=== PATIENT | female | born 1975 | race Caucasian/White ===

== ENCOUNTER → 2019-12-18 11:59 | Outpatient (CLI) | payer BC, SELFPAY ==
--- NOTE | 2019-12-18 12:01 | BI_ITS ---
MAMMOGRAPHY - BILATERAL SCREENING REASON FOR EXAM: Female, 44 years old. Routine annual screening examination. PERTINENT HISTORY: Non-contributory. TECHNIQUE: Digital bilateral breast eyad (3D mammographic acquisition) in the CC and MLO projections. 2-D mediolateral oblique (MLO) and craniocaudad (CC) views of both breasts were obtained. CAD: Full Field Digital Mammography with Computer Added Detection was performed. COMPARISON: Comparison is made with prior outside examination dated 05/19/2016. FINDINGS: Breast Composition: The breasts are extremely dense, which lowers the sensitivity of mammography. There are no dominant masses or suspicious calcifications. Stable benign-appearing bilateral axillary lymph nodes. No other significant abnormalities are identified. There has been no significant change since the prior study. BI/SCREEN MAMM (CAD) W/EYAD BILAT IMPRESSION: Stable bilateral screening mammogram. Yearly follow-up mammogram recommended. (A) ASSESSMENT CATEGORY: BIRADS Category 2: Benign. A letter regarding these results will be sent to the patient by the facility within 30 days. Approximately 10% of breast cancers are not detected by mammography. A normal mammogram should not delay biopsy of a clinically suspicious abnormality. [id number] Electronically Signed: Jaycob Huang, at 14:42 EST , Service support ,
== END ==
DX: Z12.31 Encounter for screening mammogram for malignant neoplasm of breast (principal)
CPT/HCPCS: 77063; 77067

== ENCOUNTER 2023-12-21 09:44 | Day surgery (SDC) | payer BC, SELFPAY ==
[2023-12-21] VITALS (8 sets, daily range): BP systolic 107–149; BP diastolic 61–92; PULSE 63–80; RESP 16–18; TEMP 36.1–36.3; O2SAT 94–100; BMI 24.8
--- NOTE | 2023-12-21 09:58 | PRE.ANES_ITS ---
ASA Classification* ASA Classification ASA Classification: 2 (SEE WRITTEN PRE ANESTHESIA RECORD FOR FULL ASSESSMENT) Assessment & Plan Anesthesia* Anesthesia Assessment Anesthesia Assessment: Discussed sedation and/or anesthesia options, risks, benefits, and alternatives with patient/parents/legal guardian/POA. Questions invited. The patient/parents/legal guardian/POA seems to understand and agrees to proceed with anesthesia plan. Reviewed the physical assessment, medical history, allergy history and patient home medications list prior to surgery/procedure/anesthetic and documented any changes. Performed airway and anesthesia risk assessments. 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 When Was Last Pacemaker Check QUESTION #4 FULL TEXT: You/Your Family Experience fever (hyperthermia) with Anesthesia Last Oral Intake Last Oral intake: Last Oral Intake NPO since Meds taken in AM with sips of water? Meds patient instructed to take am of surgery PONV PONV - sap business objects consultant: PONV - sap business objects consultant Female Yes 12/19/23 12:46 HX of Motion Sickness Yes 12/19/23 12:46 HX of N/V After Surgery No 12/19/23 12:46 Non-Smoker Yes 12/19/23 12:46 Duration of Surgery greater No 12/19/23 12:46 than 60 minutes Number of Risk Factors 3 12/19/23 12:46 PONV Score Moderate Risk 12/19/23 12:46 Height & Weight Height & Weight: Anesthesia: Height & Weight Height 5 ft 6 in 11/21/23 10:19 Respiratory Assessment Respiratory Assessment - sap business objects consultant: Respiratory Tract Infection Hx - sap business objects consultant Hx Respiratory Tract Infection No 12/19/23 12:46 STOP Sleep Apnea STOP Sleep Apnea - sap business objects consultant: STOP Sleep Apnea - sap business objects consultant Hx Hypertension Yes: CONTROLLED WITH MED 12/19/23 12:46 Hx Sleep Apnea No 12/19/23 12:46 CPAP BIPAP Do you snore loudly (louder No 12/19/23 12:46 than talking or can be heard Do you often feel tired/ No 12/19/23 12:46 fatigued/ sleepy during daytime? Has anyone observed you stop No 12/19/23 12:46 breathing during sleep? STOP Results Negative 12/19/23 12:46 QUESTION #5 FULL TEXT : Do you snore loudly (louder than talking or can be heard through closed doors)? 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 Specify any problems Hx of Preganancy in last 3 N/A 12/19/23 12:46 Months Nurse Filling Out Transfusion NBUCHER 12/19/23 12:46 & Questions: Date: 12/19/23 12/19/23 12:46 Time: 12:47 12/19/23 12:46 Patient unable to answer at this time (ie. confused, unrespo /Reproduction History /Reproductive History - sap business objects consultant: /Reproductive Hx- sap business objects consultant Hx Now No 12/19/23 12:46 Gestational Age (in weeks): EDC: Hx Hx Para Hx Section SAB No 12/19/23 12:46 PFSH Medical History History of kidney stones High cholesterol Non-smoker Hyperlipidemia HTN (hypertension) Home Medications ?Medication ?Instructions ?Recorded ?Last Taken ?Type ibuprofen 200 mg tablet 200 mg PO Q6H PRN pain 11/21/23 Unknown History lisinopril 20 mg tablet 20 mg PO QDAY 11/21/23 Unknown History Allergy/AdvReac Type Severity Reaction Status Date / Time No Known Allergies Allergy Verified 12/19/23 12:45 Surgical History History of wisdom tooth extraction History of History of loop electrical excision procedure (LEEP) Hx of colonoscopy Social History household members: other details: current occupational status: employed current occupation: [employer] Smoking Status: Never smoker details: Little to no alcohol substance use type: does not use caffeine: Yes Type: coffee Number of servings: 1 Review of Systems (Anesthesia) ROS Narrative System reviewed and no additional complaints, except as documented.
--- NOTE | 2023-12-21 10:18 | PCM.HP.STD ---
[facility] - General General Date of Admission: 12/21/23 Date of Service: 12/21/23 Chief Complaint: Screening colonoscopy HPI Narrative DIEUDONNE WARD, is a 48 F who presents today for screening colonoscopy. She has a past medical history of mild hypertension. She is not have abdominal pain. Is not any cramping. She not any chest pain shortness of breath. Overall she is in very good health. [facility] Medical History History of kidney stones High cholesterol Non-smoker Hyperlipidemia HTN (hypertension) Home Medications ?Medication ?Instructions ?Recorded ?Last Taken ?Type ibuprofen 200 mg tablet 200 mg PO Q6H PRN pain 11/21/23 Unknown History lisinopril 20 mg tablet 20 mg PO QDAY 11/21/23 12/21/23 History Allergy/AdvReac Type Severity Reaction Status Date / Time No Known Allergies Allergy Verified 12/21/23 10:04 Surgical History History of wisdom tooth extraction History of History of loop electrical excision procedure (LEEP) Hx of colonoscopy Social History household members: other details: current occupational status: employed current occupation: [employer] Smoking Status: Never smoker details: Little to no alcohol substance use type: does not use caffeine: Yes Type: coffee Number of servings: 1 ROS Review of Systems ROS Unobtainable: other Constitutional Constitutional: Denies fatigue, fever(s), poor appetite, weight gain or weight loss ENT HEENT: Denies mouth lesions Cardiovascular Cardiovascular: Denies abdominal bloating, abdominal edema or abdominal pain Respiratory/Chest Respiratory/Chest: Denies change in mental status, change in phlegm color, chest congestion or chest tightness Gastrointestinal Gastrointestinal: Denies belching, bloating, change in bowel habits, change in stool character, chewing difficulty, coffee ground emesis, constipation, cramping, diarrhea, dyspepsia, dysphagia, early satiety, excessive flatus, fecal incontinence, heartburn, hematemesis, hematochezia, hemorrhoids, loose stools, melena, nausea, odynophagia, rectal bleeding, tenesmus, vomiting or weight changes Genitourinary Genitourinary: Denies abdominal discomfort, burning urination or itching Musculoskeletal Musculoskeletal: Reports as per HPI; Denies muscle weakness or myalgias Integumentary Integumentary: Denies jaundice Neurologic Neurologic: Denies lack of coordination or weakness Psychiatric Psychiatric: Denies confusion, depression, memory loss, mood swings, paranoia or suicidal ideation Endocrine Endocrinology: Denies systems reviewed and no addt'l complaints, except as documented Hematologic/Lymphatic Hematologic/Lymphatic: Denies anemia, easy bleeding, easy bruising or lymphadenopathy Allergic/Immunologic Allergic/Immunologic: Denies systems reviewed and no addt'l complaints, except as documented Vital Signs Vital Signs Vital Signs: 12/21/23 10:04 12/21/23 10:04 Temperature 97.4 F L Temperature Source Temporal Pulse Rate 63 Respiratory Rate 16 Respiratory Pattern Normal Blood Pressure 149/92 H Blood Pressure Mean 111 Blood Pressure Source Monitor Blood Pressure Position Semi-Fowlers Blood Pressure Location Right Arm Pulse Ox 100 Oxygen Delivery Method Room Air Weight Weight: 154 lb Body Mass Index (BMI) 24.8 Physical Exam Const alert General Appearance: cooperative Orientation / Consciousness: oriented to person HEENT hearing grossly normal bilaterally Head and Scalp: normal to inspection Face and Sinus: face symmetric Nose: external nose normal Mouth: oral and palatal mucosa normal Eyes conjunctivae normal General Eye: normal appearance of both eyes Neck full ROM General: normal visual inspection Lymph Lymphatic: no lymphadenopathy noted Chest inspection of chest normal and palpation of chest normal Chest: symmetrical chest wall rise Resp normal respiratory effort Effort and Inspection: able to speak in complete sentences Cardio regular rate GI non-distended Percussion: normal to percussion Rectal Exam: deferred Neuro Speech: speech normal Gait (Neuro): normal gait Assessment & Plan Assessment/Plan (1) Encounter for screening for malignant neoplasm of colon: PLAN: She was explained alternatives, risk, benefits include not withstanding bleeding, infection, sepsis, perforation, need for discharge and . She will have an ASA of 3.
[2023-12-21 10:34] LABS: Internal QC Validated? YES +Cl - CLEAR BKGD; Pregnancy, Urine Negative Negative
--- NOTE | 2023-12-21 11:00 | COLBX_PTH ---
PATIENT: DIEUDONNE WARD LOC: EN U#:[id number] AGE/SX: 48/F ROOM: RE12/21/[address]: Dr. Junior Jain DO : 1975 BED: DIS: 12/21/2023 SPEC #: [id number] RECD: 12/21/23 14:53 STATUS: BAYRON REAshley #: [id number] BURAK: 12/21/23 11:[address]: Junior Jain DEPT: SURGICAL PATHOLOGY RECD BY: Kristen Bennett ENTERED: 12/22/23 07:37 SP TYPE: COLON BX OTHR DR: HEATHER De La Vega Tissues: COLON BIOPSY Procedures: Surgery Specimen Level IV HEADER OPERATION: Colonoscopy with biopsy PRE-OP DIAGNOSIS: Encounter for screening for malignant neoplasm of colon TISSUE SUBMITTED: Splenic flexure polyp biopsy MICROSCOPIC DIAGNOSIS Splenic flexure polyp, biopsy: Fragments of tubular adenoma. PHUONG/ 12/23/2023 MICROSCOPIC DESCRIPTION Slides are reviewed. GROSS DESCRIPTION Received in fixative is one container labeled with the patient's name and designated Splenic flexure polyp biopsy. The specimen consists of multiple irregular fragments of light preston soft tissue that in aggregate measure 0.5 x 0.5 x 0.1 cm. The specimen is totally submitted in one cassette. 12/22/2023 TC:1 CPT:19665
--- NOTE | 2023-12-21 12:02 | OP.COLON_ITS ---
Patient Name: Karl Hawley Procedure Date: 12/21/2023 11:24 AM Date of : 1975 Age: 48 Procedure: Colonoscopy Indications: Screening for colorectal malignant neoplasm Providers: Junior Jain DO Referring MD: Paolo De La Vega Medicines: Monitored Anesthesia Care Patient Profile: This is a 48 year old female. Refer to note in patient chart for documentation of history and physical. Last Colonoscopy: none. The patient's first colonoscopy is today. Complications: No immediate complications. Procedure: Pre-Anesthesia Assessment: - Prior to the procedure, a History and Physical was performed, and patient medications and allergies were reviewed. The patient is competent. The risks and benefits of the procedure and the sedation options and risks were discussed with the patient. All questions were answered and informed consent was obtained. Patient identification and proposed procedure were verified by the physician in the pre-procedure area. Mental Status Examination: alert and oriented. Airway Examination: normal oropharyngeal airway and neck mobility. Respiratory Examination: clear to auscultation. CV Examination: normal. Prophylactic Antibiotics: The patient does not require prophylactic antibiotics. Prior Anticoagulants: The patient has taken no anticoagulant or antiplatelet agents except for NSAID medication. ASA Grade Assessment: II - A patient with mild systemic disease. After reviewing the risks and benefits, the patient was deemed in satisfactory condition to undergo the procedure. The anesthesia plan was to use monitored anesthesia care (MAC). Immediately prior to administration of medications, the patient was re-assessed for adequacy to receive sedatives. The heart rate, respiratory rate, oxygen saturations, blood pressure, adequacy of pulmonary ventilation, and response to care were monitored throughout the procedure. The physical status of the patient was re-assessed after the procedure. After I obtained informed consent, the scope was passed under direct vision. Throughout the procedure, the patient's blood pressure, pulse, and oxygen saturations were monitored continuously. The Colonoscope was introduced through the anus and advanced to the cecum, identified by appendiceal orifice and ileocecal valve. The colonoscopy was performed without difficulty. The patient tolerated the procedure well. The quality of the bowel preparation was adequate. The entire colon was examined. Scope In: 11:38:41 AM Scope Withdrawal Time 0 hours 9 minutes 59 seconds Scope Out: 11:52:02 AM Total Procedure Duration Time 0 hours 13 minutes 21 seconds Findings: The perianal and digital rectal examinations were normal. Multiple small-mouthed diverticula were found in the recto-sigmoid colon and sigmoid colon. Two sessile polyps were found in the splenic flexure. The polyps were 1 to 2 mm in size. These polyps were removed with a cold biopsy forceps. Resection and retrieval were complete. Verification of patient identification for the specimen was done. Estimated blood loss was minimal. The exam was otherwise without abnormality on direct and retroflexion views. Impression: - Diverticulosis in the recto-sigmoid colon and in the sigmoid colon. - Two 1 to 2 mm polyps at the splenic flexure, removed with a cold biopsy forceps. Resected and retrieved. - The examination was otherwise normal on direct and retroflexion views. Recommendation: - Discharge patient to home. - Resume previous diet. - Continue present medications. - Await pathology results. - Repeat colonoscopy in 5 years for surveillance. Procedure Code(s): --- Professional --- 52829, Colonoscopy, flexible; with biopsy, single or multiple CPT copyright 2021 [employer]. All rights reserved. The codes documented in this report are preliminary and upon third hand review may be revised to meet current compliance requirements. Junior Jain DO 12/21/2023 12:01:48 PM This report has been signed electronically. Number of Addenda: 0 Note Initiated On: 12/21/2023 11:24 AM
--- NOTE | 2023-12-21 12:02 | OP.CCLET_ITS ---
12/21/2023 Paolo De La Vega Re : Colonoscopy procedure for Karl Ridleyr Shaun This procedure was performed on Thursday, December 21, 2023. My impressions and recommendations are as follows: Impressions : - Diverticulosis in the recto-sigmoid colon and in the sigmoid colon. - Two 1 to 2 mm polyps at the splenic flexure, removed with a cold biopsy forceps. Resected and retrieved. - The examination was otherwise normal on direct and retroflexion views. Recommendations : - Discharge patient to home. - Resume previous diet. - Continue present medications. - Await pathology results. - Repeat colonoscopy in 5 years for surveillance. My findings are described in the full procedure note, which is enclosed. If I can be of further assistance, please feel free to contact me at . Sincerely, Junior Jain, 12/21/2023 12:01:48 PM This report has been signed electronically.
--- NOTE | 2023-12-21 12:02 | PCM.POST.ANE ---
Anesthesia: Postop Eval I Current Vital Signs Temperature: 97 F Pulse Rate: 79 Blood Pressure: 113/67 Respiratory Rate: 16 Pulse Ox: 96 Oxygen Delivery Method: Room Air Assessment Airway patent: Yes Spontaneous unlabored respirations: Yes Mental status: Asleep nausea: No Vomiting: No Anesthesia Complication: No Fluid Hydration Crystalloid volume administer (ml): 60 Total IV fluid infused: 60 Progress Note Anesthesia document: Postop Eval 1 completed: Yes
--- NOTE | 2023-12-21 12:46 | PCM.POSTANE2 ---
Anesthesia Postop Eval I Sum Postop Eval Completion status Anesthesia document: Postop Eval 1 completed: Yes Anesthesia Postop Eval I Summary Anesthesia Postop Eval I Summary: Anesthesia Postop Eval I: Assessment Summary Airway patent Yes 12/21/23 12:04 [email or web address] Spontaneous unlabored Yes 12/21/23 12:04 [email or web address] respirations Mental status Asleep 12/21/23 12:04 [email or web address] nausea No 12/21/23 12:04 [email or web address] Vomiting No 12/21/23 12:04 [email or web address] Anesthesia Postop Eval I: Fluid Summary Crystalloid volume administer 60 12/21/23 12:04 [email or web address] (ml) Colloids volume administered ( ml) Blood Product volume administered (ml) Total IV fluid infused 60 12/21/23 12:04 [email or web address] Anesthesia Postop Eval I: Summary Notes Anesthesia Complication No 12/21/23 12:04 [email or web address] Anesthesia Complication Comment: Post-operative progress note Anesthesia: Postop Eval II Evaluation Mental status: Awake Pain Level: 0 nausea: No Vomiting: No
== END 2023-12-21 12:48 | disposition home or self-care (01) ==
LOC: EN 09:44 → AC 09:47
PROVIDERS: Anesthesiology; Visit Provider Internal Medicine Gastroenterology
PROC: 0DJD8ZZ Inspection of Lower Intestinal Tract, Via Natural or Artificial Opening Endoscopic (ICD-10-PCS; CPT 45378; principal; 2023-12-21 10:55)
DX: Z12.11 Encounter for screening for malignant neoplasm of colon (principal); D12.3 Benign neoplasm of transverse colon; K57.30 Diverticulosis of large intestine without perforation or abscess without bleeding; I10 Essential (primary) hypertension; E78.00 Pure hypercholesterolemia, unspecified; Z79.899 Other long term (current) drug therapy
CPT/HCPCS: 45380; 81025; 88305; A4216; J2405

== ENCOUNTER → 2024-02-02 | Outpatient (CLI) | payer BC, SELFPAY ==
--- NOTE | 2024-02-02 14:57 | BI_ITS ---
MAMMOGRAPHY - BILATERAL SCREENING REASON FOR EXAM: Female, 48 years old. Routine annual screening examination. PERTINENT HISTORY: Non-contributory. TECHNIQUE: Digital bilateral breast eyad (3D mammographic acquisition) in the CC and MLO projections. 2-D mediolateral oblique (MLO) and craniocaudad (CC) views of both breasts were obtained. CAD: Full Field Digital Mammography with Computer Added Detection was performed. COMPARISON: Comparison is made with prior study dated December 18, 2019. FINDINGS: Breast Composition: The breasts are extremely dense, which lowers the sensitivity of mammography. There are no dominant masses or suspicious calcifications. Stable bilateral fat containing axillary lymph nodes. No other significant abnormalities are identified. There has been no significant change since the prior study. BI/SCRN MAMM (CAD)W/EYAD BILAT IMPRESSION: Stable bilateral screening mammogram. Yearly follow-up mammogram recommended. (A) ASSESSMENT CATEGORY: BIRADS Category 2: Benign. A letter regarding these results will be sent to the patient by the facility within 30 days. Approximately 10% of breast cancers are not detected by mammography. A normal mammogram should not delay biopsy of a clinically suspicious abnormality. [id number] Electronically Signed: Jaycob Huang MD at 15:32 EST ,
== END | disposition home or self-care (01) ==
LOC: OPBI 14:42
DX: Z12.31 Encounter for screening mammogram for malignant neoplasm of breast (principal)
CPT/HCPCS: 77063; 77067